=== PATIENT | male | born 1950 | race Asian ===

== ENCOUNTER 2017-07-16 05:30 | Observation (INO) | payer MEDICARE, OTHER ==
[2017-07-13 15:41] LABS: BASOPHILS # (AUTO) 0.1 (0.0-0.1); BASOPHILS % 0.9 % (0.0-1.0); EOSINOPHILS % 0.3 % (0.0-6.0); HEMATOCRIT 44.2 % (38.2-49.6); LYMPHOCYTES # (AUTO) 2.3 (1.0-3.2); LYMPHOCYTES % 30.6 % (18.0-39.1); MEAN CORPUSCULAR HEMOGLOBIN 30.7 pg (28-32); MEAN CORPUSCULAR HGB CONC 33.9 g/dL (31-35); MEAN CORPUSCULAR VOLUME 90.6 fL (81-99); MONOCYTES # (AUTO) 0.9 (0.2-0.8); MONOCYTES % 11.5 % (4.4-11.3); NEUTROPHILS # (AUTO) 4.2 (2.1-6.9); NEUTROPHILS % 56.4 % (38.7-80.0); PLATELET COUNT 168 x10e3/uL (140-360); RED BLOOD COUNT 4.88 x10e6/uL (4.3-5.7); RED CELL DISTRIBUTION WIDTH 13.2 % (11.7-14.4)
[2017-07-13 15:55] LABS: ANION GAP 13.6 mmol/L (8-16); BLOOD UREA NITROGEN 17 mg/dL (7-26); BUN/CREATININE RATIO 16 (6-25); CALCIUM 9.5 mg/dL (8.4-10.2); CARBON DIOXIDE 26 mmol/L (22-29); CHLORIDE 102 mmol/L (98-107); CREATININE, SERUM 1.04 mg/dL (0.72-1.25); EST GLOMERULAR FILTRATION RATE > 60 ML/MIN (60-); GLUCOSE 94 mg/dL (74-118); POTASSIUM 3.6 mmol/L (3.5-5.1); SODIUM 138 mmol/L (136-145)
--- NOTE | 2017-07-13 18:00 | Diagnostic Imaging Report ---
PROCEDURE: Frontal and lateral views of the chest. COMPARISON: None. INDICATIONS: pre op neck mass removal FINDINGS: Lines/tubes: None. Lungs: The lungs are well inflated and clear. There is no evidence of pneumonia or pulmonary edema. Pleura: There is no pleural effusion or pneumothorax. Heart and mediastinum: The heart and the mediastinum are normal. Aorta is mildly tortuous. Bones: No acute bony abnormality. IMPRESSION: 1. No acute cardiopulmonary disease. Dictated by: Asher Everett M.D. on 07/13/2017 at 18:09 Electronically approved by: Asher Everett M.D. on 07/13/2017 at 18:09
[~2017-07-16] VITALS: Ht 162.6 cm; Wt 80.8 kg
[~2017-07-16 05:30] MED LIST: AMLODIPINE BESY10 MG PO; ATORVASTATIN CA20 MG PO; FINASTERIDE5 MG PO; FLOMAX0.4 MG PO; TRIAMTERENE-HCTZ1 EA PO
--- OUTSIDE RECORDS SUMMARY | 2017-07-16 05:32 | XMS REPORT | Clinical Summary ---
Author Author [facility] Organization [facility] Address Unknown Phone Unavailable Care Team Providers Care Printing Machine Operator Tape Rules Name Role Phone Misbah Anderson MD PCP Allergies Not on File Current Medications Prescription Sig. Disp. Refills Start End Date Status Date amLODIPine (NORVASC) 10 amlodipine 10 mg tablet Active MG tablet clindamycin (CLEOCIN) 300 0 12/31/19 Active MG capsule 16 finasteride (PROSCAR) 5 4 12/15/19 Active mg tablet 16 meloxicam (MOBIC) 7.5 MG 0 01/01/20 Active tablet 16 simvastatin (ZOCOR) 20 MG 3 12/31/19 Active tablet 16 amLODIPine (NORVASC) 10 4 12/15/19 Active MG tablet 16 tamsulosin (FLOMAX) 0.4 1 12/25/19 Active mg capsule,extended 16 release 24hr triamterene-hydrochloroth 5 12/25/19 Active iazid (MAXZIDE-25) 16 37.5-25 mg per tablet Active Problems Problem Noted Date Closed displaced fracture of proximal phalanx of lesser toe of left foot 06/2015 Social History Tobacco Use Types Packs/Day Years Used Date Never Assessed Sex Assigned at Date Recorded Not on file Last Filed Vital Signs Not on file Plan of Treatment Health Maintenance Due Date Last Done Comments COLONOSCOPY 10/18/2001 ZOSTER VACCINE 2011 PNEUMOCOCCAL 10/18/2016 POLYSACCHARIDE VACCINE AGE 65 AND OVER PNEUMOCOCCAL-13 10/18/2016 INFLUENZA VACCINE 01/13/2017 Results Not on fileafter 07/15/2016 Insurance Payer Benefit Subscriber ID Type Phone Address Plan / Group BCBS EXCHANGE BLUE [id number] Exchange ADVANTAGE HMO EXCH
--- OUTSIDE RECORDS SUMMARY | 2017-07-16 05:32 | XMS REPORT ---
Author Author [facility] Address Unknown Phone Unavailable Care Team Providers Care Project Crew Worker Name Role Phone SAMANTHA RENE Unavailable Unavailable Problems This patient has no known problems. Allergies, Adverse Reactions, Alerts This patient has no known allergies or adverse reactions. Medications This patient has no known medications. Results Test Description Test Time Test Comments Text Results Atomic Results Result Comments CHEST 2 VIEWS [place] [address] Patient Name: MORTEZA DAVIS MR # : [id number] : 1950 Age/Sex: 66/M Req #: [id number] Adm Physician: Ordered by: JOSE CARLOS LEDEZMA MD Report #: [id number] Location: OR Room/Bed: Procedure: [id number] DX/ CHEST 2 VIEWS Exam Date: 07/13/17 Exam Time: 1550 REPORT STATUS: Signed PROCEDURE: Frontal and lateral views of the chest. COMPARISON: None. INDICATIONS: pre op neck mass removal FINDINGS: Lines/tubes: None. Lungs: The lungs are well inflated and clear. There is no evidence of pneumonia or pulmonary edema. Pleura: There is no pleural effusion or pneumothorax. Heart and mediastinum: The heart and the mediastinum are normal. Aorta is mildly tortuous. Bones: No acute bony abnormality. IMPRESSION: 1. No acute cardiopulmonary disease. Dictated by: Asher Webb M.D. on at 18:09 Electronically approved by: Asher Webb M.D. on 07/13 at 18:09 Dictated By: ASHER WEBB MD 08 Transcribed By: ABEL on 07/13/171808 COPY TO: JOSE CARLOS LEDEZMA MD
[2017-07-16] MEDS ORDERED: LIDOCAINE 1% W/EPINEPHRINE 20 ML VIAL ONE (06:28)
--- NOTE | 2017-07-16 09:10 | Operative Report ---
DATE OF PROCEDURE: July 16, 2017 PREOPERATIVE DIAGNOSIS: Thyroglossal duct cyst. POSTOPERATIVE DIAGNOSIS: Thyroglossal duct cyst. PROCEDURE: Excision of thyroglossal duct cyst. SIGNIFICANT FINDINGS: A 3-cm cyst consistent with thyroglossal duct cyst inferior to the central portion of the hyoid bone. HYDRAULIC ROCKBREAKER OPERATOR: Payal Mohamud ANESTHESIA: General endotracheal tube anesthesia. SPECIMENS REMOVED: Thyroglossal duct cyst. ESTIMATED BLOOD LOSS: 10 mL. COMPLICATIONS: None. INDICATIONS: The patient is a 66-year-old male with a 10-month history of a nontender enlarging mass in the superior midline of the anterior neck. He denies throat symptoms. He quit smoking in the 1980s. CT of the neck performed on June 17, 2017, revealed a well circumscribed cystic midline neck mass anterior-inferior to the hyoid bone measuring 2.5 x 2 x 1.6 cm consistent with thyroglossal duct cyst. On examination, he had a 3.5 cm nontender neck mass in the superior midline of the anterior neck, which moves with swallowing. He is scheduled for excision of this neck mass consistent with thyroglossal duct cyst under general anesthesia. Risks and complications of the procedures were thoroughly discussed with the patient, and they include infection, bleeding, scarring, failure to improve, need for additional operations, poor cosmetic appearance of the incision, recurrence of mass, violation of the pharyngeal mucosa causing leakage of upper aerodigestive tract secretions into the soft tissues in the neck and chest, possibility of malignancy and need for further treatment, damage to the recurrent laryngeal nerves causing hoarseness and vocal cord paralysis, need for blood transfusions, damage to surrounding nerves, blood vessels and muscles. He fully understands and gives consent. PROCEDURE: The patient was taken to the operating room and placed supine on the operating table where general anesthesia was achieved through orotracheal intubation. Ancef was administered. Injection with 5 mL of 1% lidocaine with 1:100,000 epinephrine was injected along a natural skin crease overlying the mass. The neck was prepped and draped in the usual sterile fashion. An approximately 5-cm incision was then made horizontally along the natural skin crease overlying the mass. The incision was made past the platysmal layer until the superficial capsule of the mass was encountered. This was then dissected along its capsule peripherally until it was only attached superiorly to the central portion of the hyoid bone. The hyoid bone was then skeletonized, and was cut removing the central portion of the hyoid bone. Further dissection was then performed to remove any tract that may be extending into the base of the tongue area. This was then removed and sent for permanent section analysis. There appeared to be no evidence of violation of the pharyngeal mucosa. Following this, hemostasis was obtained with judicious use of the bipolar cautery. Irrigation was then performed. A TLS drain was then inserted and brought out through a separate stab incision. The wound was then repaired with interrupted 4-0 Monocryl to the platysmal layer followed by interrupted 4-0 Monocryl in a subcuticular fashion followed by Dermabond. The patient was awakened in the operating room, extubated and taken to the recovery room in good condition. Job#: [id number] SANNA JULES
--- OUTSIDE RECORDS SUMMARY | 2017-07-16 09:47 | XMS REPORT | Clinical Summary ---
Author Author [facility] Organization [facility] Address Unknown Phone Unavailable Care Team Providers Care Inspector Experimental Assembly Name Role Phone Misbah Anderson MD PCP [...] Address Plan / Group BCBS EXCHANGE BLUE [id number] Exchange ADVANTAGE HMO EXCH
[2017-07-16 10:21] VITALS: BP 129/77
[2017-07-16 10:23] VITALS: BP 129/77
[2017-07-16 10:25] VITALS: BP 129/77
[2017-07-16] MEDS ORDERED: ONDANSETRON HCL INJ 2 MG/ML VIAL IV PRN (10:30)
[2017-07-16] MEDS: D5.45%NS/KCL 20MEQ 1,000 ML IV SCH ×3 (11:11→19:21)
[2017-07-16] MEDS: CEFAZOLIN SOD 1 GM VIAL IV SCH ×2 (13:24→21:04)
[2017-07-16 15:23] VITALS: BP 117/59
[2017-07-16] MEDS ORDERED: ONDANSETRON HCL INJ 2 MG/ML VIAL ONE (18:13)
[2017-07-16] MEDS ORDERED: SEVOFLURANE INHAL SOLN 250 ML PEN BTL ONE (18:13)
[2017-07-16] MEDS ORDERED: KETOROLAC TROMETHAMINE 30 MG/ML VIAL ONE (18:13)
[2017-07-16] MEDS ORDERED: PROPOFOL IV EMULSION 10 MG/ML 20 ML VIAL ONE (18:13)
[2017-07-16] MEDS ORDERED: ROCURONIUM BROMIDE 10 MG/ML 5ML VIAL ONE (18:13)
[2017-07-16] MEDS ORDERED: DEXAMETHASONE SOD PHOS INJ 4 MG/ML VIAL ONE (18:13)
[2017-07-16] MEDS ORDERED: LIDOCAINE HCL 2% LOCAL INJ 5 ML SDV VIAL INJ ONE (18:13)
[2017-07-16] MEDS: HYDROCODONE/APAP 10MG-325MG TAB PO PRN (18:38)
[2017-07-16] MEDS ORDERED: MIDAZOLAM HCL 2 MG/2 ML VIAL ONE (19:09)
[2017-07-16] MEDS ORDERED: FENTANYL CITRATE/PF 100MCG/2 ML INJ ONE (19:09)
[2017-07-16 20:00] VITALS: BP 117/68
[2017-07-16] MEDS ORDERED: ATORVASTATIN 20 MG TAB PO SCH (21:00)
[2017-07-17] VITALS: BP 128/68
[2017-07-17] MEDS: HYDROCODONE/APAP 10MG-325MG TAB PO PRN (05:03)
[2017-07-17] MEDS: CEFAZOLIN SOD 1 GM VIAL IV SCH (05:16)
[2017-07-17 08:31] VITALS: BP 136/67
[2017-07-17] MEDS ORDERED: TRIAMTERENE/HCTZ 37.5-25 MG TAB PO SCH (09:00)
[2017-07-17] MEDS ORDERED: FINASTERIDE 5 MG TAB PO SCH (09:00)
[2017-07-17] MEDS ORDERED: AMLODIPINE BESYLATE 10 MG TAB PO SCH (09:00)
[2017-07-17] MEDS ORDERED: TAMSULOSIN HCL 0.4 MG CAP PO SCH (09:00)
== END 2017-07-17 09:11 | disposition home or self-care (01) ==
LOC: OR 05:30 → IMCU 09:45
PROVIDERS: ADMIT Otolaryngology; ATTEND Otolaryngology
DX: Q89.2 Congenital malformations of other endocrine glands (principal)
CPT/HCPCS: 36415; 60280; 71046; 80048; 85025; 88304; 88311; 93005; 96361; G0378 ×2; J0690 ×2; J1100; J1885; J2001; J2250; J2405; 88305